=== PATIENT | male | born 1945 ===

== ENCOUNTER 2024-09-08 06:00 | Day surgery (SDC) | payer OTHER ==
[2024-08-30 13:44] VITALS: BP 150/78
[~2024-09-08] VITALS: Ht 177.8 cm; Wt 72.6 kg
[~2024-09-08 06:00] MED LIST: ATORVASTATIN CA40 MG PO; NEURIN PO; RHOPRESSA2.5 ML OTIC; TOPROL XL25 M1 PO; VITAMIN D31 ML MC; VYZULTA5 ML OP; XARELTO20 MG PO
[2024-09-08] MEDS ORDERED: BUPIVACAINE HCL 30 ML VIAL IJ ONE (08:15)
[2024-09-08] MEDS ORDERED: METRONIDAZOLE/SODIUM CHLORIDE 500 MG/100 ML PIGGYBACK IV ONE (08:15)
[2024-09-08] MEDS ORDERED: CEFTRIAXONE SODIUM 2,000 MG VIAL IV ONE (08:15)
[2024-09-08] MEDS ORDERED: BUPIVACAINE LIPOSOME/PF 266 MG/20 ML VIAL IJ ONE (08:30)
[2024-09-08] MEDS ORDERED: DIBUCAINE 15 GM OINT..GM. TUBE RECTAL ONE (08:30)
[2024-09-08] MEDS ORDERED: HEMOSTATIC MATRIX 1 KIT KIT TOP ONE (08:30)
== END 2024-09-08 13:50 | disposition home or self-care (01) ==
LOC: CIR.AMB 06:00
PROVIDERS: ATTEND Colon & Rectal Surgery
DX: K64.2 Third degree hemorrhoids (principal); K64.4 Residual hemorrhoidal skin tags; K62.6 Ulcer of anus and rectum; D12.9 Benign neoplasm of anus and anal canal; I10 Essential (primary) hypertension; E78.00 Pure hypercholesterolemia, unspecified; Z86.73 Personal history of transient ischemic attack (TIA), and cerebral infarction without residual deficits